=== PATIENT | female | born 1970 | race Caucasian/White ===

== ENCOUNTER 2017-04-05 13:12 | Emergency (ER) | payer SELFPAY ==
[~2017-04-05] VITALS: Ht 162.6 cm; Wt 87.0 kg
[2017-04-05 13:15] VITALS: BP 155/116
== END 2017-04-05 18:24 | disposition left against medical advice (07) ==
LOC: ER 17:48
DX: R51 Headache (principal); Z53.21 Procedure and treatment not carried out due to patient leaving prior to being seen by health care provider